=== PATIENT | female | born 1940 | race Caucasian/White ===

== ENCOUNTER 2019-08-14 10:28 | Emergency (ER) | payer MEDICARE, OTHER ==
--- NOTE | 2019-08-14 10:41 | ED ---
Upper Extremity Pain - HPI Summary HPI Summary: Patient is an 79-year-old female who presents emergency department for injury to right hand that occurred just prior to arrival. Patient excellently closed car door on her right hand. 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 Associated symptoms today of skin tear to right hand. Patient unaware of her last tetanus immunization. Symptoms are mild in severity. Touching affected area makes symptoms worse. Rest makes symptoms better. - History of Current Complaint Chief Complaint: EDExtremityUpper Stated Complaint: RT HAND INJ CAR DOOR Time Seen by Provider: 08/14/19 10:38 Hx Obtained From: Patient - Allergies/Home Medications Allergies/Adverse Reactions: Allergies Allergy/AdvReac Type Severity Reaction Status Date / Time Penicillins Allergy Anaphylatic Verified 08/14/19 10:47 Shock "most antibiotics" Allergy Anaphylatic Uncoded 08/14/19 10:47 Shock Home Medications: Home Medications Omeprazole 20 mg PO DAILY 08/14/19 [History Confirmed 08/14/19] Ranitidine TAB (NF) [Zantac TAB (NF)] 150 mg PO DAILY 08/14/19 [History Confirmed 08/14/19] Simvastatin 20 mg PO DAILY 08/14/19 [History Confirmed 08/14/19] PMH/Surg Hx/FS Hx/Imm Hx Previously Healthy: Yes Infectious Disease History: No Infectious Disease History: Denies: Traveled Outside the [place] in Last 30 Days - Family History Known Family History: Positive: Non-Contributory - Social History Occupation: Retired Lives: With Family Review of Systems Positive: Other - Superifical skin tear to distal stump. Pain on palpation over second MCP joint. No wrist tenderness Positive: Other - Superifical skin tear to distal stump. Pain on palpation over second MCP joint. No wrist tenderness Neurological: Negative All Other Systems Reviewed And Are Negative: Yes Physical Exam Vital Signs On Initial Exam: Initial Vitals Temp Pulse Resp BP Pulse Ox 98.6 F 78 16 173/91 98 08/14/19 10:30 08/14/19 10:30 08/14/19 10:30 08/14/19 10:30 08/14/19 10:30 Procedures - Sedation Patient Received Moderate/Deep Sedation with Procedure: No - Splinting Right Upper Extremity Hand-Made Type: orthoglass Splint: thumb spica Pre-Proc Neuro Vasc Exam: normal Post-Proc Neuro Vasc Exam: normal Splint Applied by Provider: Gustavo Hernandez Diagnostics - Vital Signs Vital Signs Temp Pulse Resp BP Pulse Ox 08/14/19 10:30 98.6 F 78 16 173/91 98 - Laboratory Lab Statement: Any lab studies that have been ordered have been reviewed, and results considered in the medical decision making process. Course/Dx - Course Course Of Treatment: Patient with right hand injury and skin tear. Pt. declines tetanus immunization stating that she has bad reactions to most medications. Pt. understands risk. Wound was irrigated and cleaned with hibiclens. Skin flap approxiated and sterile dressing placed. Xray shows fx to second MCP per radiology. Splint placed. Pt. notes she is visiting [place] for the weekend and will be returning Saturday. Advised to call her pcp for ortho referral within one week. A few tablets of oxycodone rx for pain. Pt. notes it is the only pain medication she can take. SERICULTURIST reviewed. Pt. dc home with . - Diagnoses Differential Diagnosis/HQI/PQRI: Positive: Fracture (Closed), Hematoma, Strain, Sprain Provider Diagnoses: Hand fracture, Skin tear Discharge ED - Sign-Out/Discharge Documenting (check all that apply): Patient Departure - Discharge Plan Condition: Good Disposition: HOME Prescriptions: oxyCODONE TAB* [Roxycodone TAB 5 mg*] 5 mg PO Q6H PRN #8 tab MDD 4 PRN Reason: Pain - Moderate Patient Education Materials: Hand Fracture (ED) Referrals: Martin Brown MD [Medical Doctor] - Additional Instructions: Please call your PCP on Saturday for referral to orthopedics within one week Keep splint in place Ice and elevate Pain medication as directed Return to ER if symptoms change or worsen - Billing Disposition and Condition Condition: GOOD Disposition: Home
[2019-08-14] MEDS ORDERED: Tetan/Diph/Pertus SYR(Tdap)* 0.5 ML SYR(BOOSTRIX) use SYR contains LATEX IM ONE (10:52)
[2019-08-14 12:54] VITALS: BP 168/86
== END 2019-08-14 12:40 | disposition home or self-care (01) ==
LOC: ED 10:28
DX: S62.390A Other fracture of second metacarpal bone, right hand, initial encounter for closed fracture (principal); S61.411A Laceration without foreign body of right hand, initial encounter; W23.0XXA Caught, crushed, jammed, or pinched between moving objects, initial encounter; Y92.9 Unspecified place or not applicable; Z88.0 Allergy status to penicillin; Z79.899 Other long term (current) drug therapy
CPT/HCPCS: 90471; 99282